=== PATIENT | male | born 1975 | race Caucasian/White ===

== ENCOUNTER 2017-01-03 08:21 | Emergency (ER) | payer OTHER ==
[2017-01-03] MEDS ORDERED: PROPARACAINE HCL 0.5% OPHTHALMIC SOL ONE (08:33)
[2017-01-03] MEDS ORDERED: BSS/BALANCED SALT SOL ONE (08:33)
[2017-01-03] MEDS ORDERED: SODIUM CHLORIDE 0.9% 1000ML 1,000 ML IV ONE (09:00)
[2017-01-03 09:07] VITALS: RESP 16; TEMP 97.9
[2017-01-03] MEDS ORDERED: PROPARACAINE HCL 0.5% OPHTHALMIC SOL OP ONE (09:07)
[2017-01-03] MEDS ORDERED: BSS/BALANCED SALT SOL OP ONE (09:07)
[2017-01-03 09:23] VITALS: BP 127/80; PULSE 88; O2SAT 99
== END 2017-01-03 10:05 | disposition short-term general hospital (02) | DRG 125 ==
LOC: EDBD → ED 08:21 → MERGE 08:21 → ED 10:05
DX: S05.8X2A Other injuries of left eye and orbit, initial encounter (principal); W20.8XXA Other cause of strike by thrown, projected or falling object, initial encounter
CPT/HCPCS: 99284